=== PATIENT | female | born 1965 | race Two or more races ===

== ENCOUNTER → 2017-10-02 | Outpatient (CLI) | payer OTHER | LOC: CFH 08:19 | PROVIDERS: ATTEND Obstetrics & Gynecology | DX: Z12.31 Encounter for screening mammogram for malignant neoplasm of breast (principal) | CPT/HCPCS: 77067 ==

== ENCOUNTER → 2018-03-19 | Outpatient (CLI) | payer OTHER | END | disposition home or self-care (01) | LOC: CFH 11:23 | PROVIDERS: ATTEND Family Medicine | DX: M51.37 Other intervertebral disc degeneration, lumbosacral region (principal) | CPT/HCPCS: 72110 ==

== ENCOUNTER 2019-09-15 13:42 | Emergency (ER) | payer BC ==
[~2019-09-15] VITALS: Ht 160 cm; Wt 58.3 kg
[2019-09-15] MEDS ORDERED: DIAZEPAM 5 MG/ML, 2ML ONE (14:54)
[2019-09-15] MEDS ORDERED: MORPHINE SULFATE 4 MG/ML, 1ML ONE (14:55)
[2019-09-15] MEDS ORDERED: SODIUM CHLORIDE FLUSH 10ML SYR IVF ONE (15:00)
[2019-09-15] MEDS ORDERED: DIAZEPAM 5 MG/ML, 2ML IVPush ONE (15:00)
[2019-09-15] MEDS ORDERED: MORPHINE SULFATE 4 MG/ML, 1ML IVPush PRN (15:00)
[2019-09-15 15:05] LABS: ALANINE AMINOTRANSFERASE 29 U/L (12-78); ALBUMIN 4.1 g/dL (3.4-5.0); ANION GAP 6 mmol/L (5-15); BASOPHILS # (AUTO) 0.01 x10^3/uL (0-0.1); BASOPHILS % (AUTO) 0 % (0-1); CALCIUM 9.4 mg/dL (8.5-10.1); CHLORIDE 109 mmol/L (98-107); CREATININE 0.56 mg/dL (0.55-1.02); EOSINOPHILS # (AUTO) 0.06 x10^3/uL (0-0.4); EOSINOPHILS % (AUTO) 1 % (1-7); LYMPHOCYTES % (AUTO) 17 % (22-44); MD NO; MEAN CORPUSCULAR HGB CONC 33.6 g/dL (32.4-35.8); MEAN CORPUSCULAR VOLUME 92.3 fL (80-100); MEAN PLATELET VOLUME 9.1 fL (7.4-10.4); MONOCYTES # (AUTO) 0.48 x10^3/uL (0.2-0.8); MONOCYTES % (AUTO) 8 % (2-9); NEUTROPHILS # (AUTO) 4.71 x10^3/uL (1.8-6.8); NEUTROPHILS % (AUTO) 74 % (42-75); PLATELET COUNT 260 x10^3/uL (130-400); RED CELL DISTRIBUTION WIDTH 12.8 % (9.6-15.2)
[2019-09-15 15:07] LABS: ALKALINE PHOSPHATASE 94 U/L (45-117); BILIRUBIN,TOTAL 0.4 mg/dL (0.2-1.0); TOTAL PROTEIN 7.4 g/dL (6.4-8.2)
[2019-09-15] MEDS ORDERED: OMNIPAQUE 350 MG/ML, 100ML BOTTLE ONE (15:45)
[2019-09-15 16:29] VITALS: BP 106/64
== END 2019-09-15 16:53 | disposition home or self-care (01) ==
LOC: ED 14:30
DX: K59.00 Constipation, unspecified (principal); R10.32 Left lower quadrant pain; M62.838 Other muscle spasm; M54.9 Dorsalgia, unspecified
CPT/HCPCS: 36415; 74177; 80053; 85025; 96374; 96375; 99285; J2270; J3360; Q9967

== ENCOUNTER 2021-02-03 17:38 | Inpatient (IN) | payer BC ==
[~2021-02-03] VITALS: Ht 160 cm; Wt 60.5 kg
--- NOTE | 2021-02-03 17:58 | NUR ---
PT TO ROOM FROM TRIAGE, CHANGED INTO GOWN, ALL MONITORS IN PLACE. PT C/O CP STARTING AT 1700. SUBSTERNAL THAT RADIATES TO L-ARM. PT STATES SHE FEELS N/V WITH SOB. AXOX4, AT BS. CALL LIGHT WITHIN REACH
--- NOTE | 2021-02-03 18:06 | NUR ---
ERP AT BS
[2021-02-03] MEDS ORDERED: ONDANSETRON 2MG/ML, 2ML ONE (18:17)
[2021-02-03] MEDS ORDERED: MORPHINE SULFATE 4 MG/ML, 1ML ONE (18:18)
--- NOTE | 2021-02-03 18:19 | NUR ---
XRAY AT BS
--- NOTE | 2021-02-03 18:23 | NUR ---
PT MEDICATED PER EMAR, NADN.
[2021-02-03] MEDS ORDERED: MORPHINE SULFATE 4 MG/ML, 1ML IVPush PRN ×2 (18:30→22:00)
[2021-02-03] MEDS ORDERED: ONDANSETRON 2MG/ML, 2ML IVPush ONE (18:30)
[2021-02-03 18:33] LABS: BASOPHILS % (AUTO) 0 % (0-1); EOSINOPHILS % (AUTO) 1 % (1-7); LYMPHOCYTES % (AUTO) 30 % (22-44); MEAN CORPUSCULAR HEMOGLOBIN 30.2 pg (27.0-34.8); MEAN CORPUSCULAR HGB CONC 33.4 g/dL (32.4-35.8); MEAN PLATELET VOLUME 8.6 fL (7.4-10.4); MONOCYTES % (AUTO) 8 % (2-9); NEUTROPHILS % (AUTO) 60 % (42-75); PLATELET COUNT 244 x10^3/uL (130-400); RED BLOOD COUNT 4.53 x10^6/uL (3.82-5.3); RED CELL DISTRIBUTION WIDTH 12.9 % (9.6-15.2)
[2021-02-03 18:36] LABS: ANION GAP 5 mmol/L (5-15); CALCIUM 8.3 mg/dL (8.5-10.1); CHLORIDE 108 mmol/L (98-107)
[2021-02-03 18:37] LABS: ALANINE AMINOTRANSFERASE 21 U/L (12-78); ALBUMIN 3.6 g/dL (3.4-5.0)
[2021-02-03 18:41] LABS: ALKALINE PHOSPHATASE 96 U/L (45-117); BILIRUBIN,TOTAL 0.3 mg/dL (0.2-1.0); TOTAL PROTEIN 7.3 g/dL (6.4-8.2); TROPONIN I < 0.015 ng/mL (0.000-0.045)
--- NOTE | 2021-02-03 18:50 | NUR ---
REPORT TO HUGO TUBBS
--- NOTE | 2021-02-03 18:51 | NUR ---
Shelbie castano in [facility] - 02/03/21 at 1852 by [email or web address] REPORT FROM JASEN ARIAS
--- NOTE | 2021-02-03 18:53 | NUR ---
REPORT FROM JASEN ARIAS
[2021-02-03 21:34] LABS: TROPONIN I 0.515 ng/mL (0.000-0.045)
[2021-02-03] MEDS ORDERED: ASPIRIN 325 MG TABLET ONE (21:40)
[2021-02-03] MEDS ORDERED: ASPIRIN 325 MG TABLET PO ONE (22:00)
[2021-02-03] MEDS ORDERED: ONDANSETRON 2MG/ML, 2ML IVPush PRN ×2 (22:00→22:30)
--- NOTE | 2021-02-03 22:11 | NUR ---
attempt to call floor [phone]
--- NOTE | 2021-02-03 22:18 | NUR ---
Report to Adia ARIAS
[2021-02-03] MEDS ORDERED: LABETALOL 5MG/ML, 20ML IVPush PRN (22:30)
[2021-02-03] MEDS ORDERED: LORazepam 1MG TABLET PO PRN (22:30)
[2021-02-03] MEDS ORDERED: NITROGLYCERIN 0.4 MG BOTTLE (25 TABS) SL PRN (22:30)
[2021-02-03] MEDS ORDERED: NITROGLYCERIN 0.4 MG/SPRAY SL PRN (22:30)
[2021-02-03] MEDS ORDERED: OXYcodone IR 5MG TABLET PO PRN (22:30)
[2021-02-03] MEDS ORDERED: POLYETHYLENE GLYCOL 17 GM PACKET PO PRN (22:30)
[2021-02-03] MEDS: MELATONIN 5 MG TABLET PO SCH (22:30)
[2021-02-03] MEDS ORDERED: morphine SULFATE 10 MG/ML, 1ML IVPush PRN (22:30)
[2021-02-03 22:37] VITALS: BP 125/77
[2021-02-03] MEDS ORDERED: NAPR-856 PO (22:50)
[2021-02-03] MEDS: FAMOTIDINE 20 MG/2 ML IVPush SCH (23:01)
[2021-02-04] MEDS ORDERED: HEPARIN 5,000 UNITS/ML, 1ML IV ONE (00:30)
[2021-02-04] MEDS ORDERED: HEPARIN 5,000 UNITS/ML, 1ML IV PRN (00:30)
[2021-02-04] MEDS: HEPARIN 25,000 UNITS/250ML PMX 250 ML IV PRN (01:10)
[2021-02-04 01:13] VITALS: BP 107/70
[2021-02-04 04:16] LABS: BASOPHILS % (AUTO) 0 % (0-1); EOSINOPHILS % (AUTO) 1 % (1-7); LYMPHOCYTES % (AUTO) 23 % (22-44); MEAN CORPUSCULAR HEMOGLOBIN 30.8 pg (27.0-34.8); MEAN CORPUSCULAR HGB CONC 33.9 g/dL (32.4-35.8); MEAN PLATELET VOLUME 8.3 fL (7.4-10.4); MONOCYTES % (AUTO) 8 % (2-9); NEUTROPHILS % (AUTO) 68 % (42-75); PLATELET COUNT 235 x10^3/uL (130-400); RED BLOOD COUNT 4.42 x10^6/uL (3.82-5.3); RED CELL DISTRIBUTION WIDTH 12.8 % (9.6-15.2)
[2021-02-04 04:23] LABS: ANION GAP 4 mmol/L (5-15); CALCIUM 8.9 mg/dL (8.5-10.1); CHLORIDE 110 mmol/L (98-107); CREATININE 0.51 mg/dL (0.55-1.02)
[2021-02-04 07:12] VITALS: BP 116/75
[2021-02-04 07:59] LABS: TROPONIN I 0.924 ng/mL (0.000-0.045)
[2021-02-04] MEDS: FAMOTIDINE 20 MG/2 ML IVPush SCH ×2 (09:25→21:15)
[2021-02-04] MEDS: ACETAMINOPHEN 325 MG TABLET PO PRN ×2 (09:33→18:39)
[2021-02-04 13:56] LABS: TROPONIN I 0.534 ng/mL (0.000-0.045)
[2021-02-04 14:33] VITALS: BP 112/70
[2021-02-04] MEDS: SODIUM CHLORIDE 0.9% 1,000 ML IV SCH (15:22)
[2021-02-04 18:38] VITALS: BP 121/77
[2021-02-04] MEDS: CARVEDILOL 3.125 MG TABLET PO SCH (18:39)
[2021-02-04 19:30] VITALS: BP 126/78
[2021-02-04] MEDS: MELATONIN 5 MG TABLET PO SCH (21:00)
[2021-02-04] MEDS ORDERED: ATORVASTATIN 80 MG TABLET PO SCH (21:00)
[2021-02-05] MEDS: SODIUM CHLORIDE 0.9% 1,000 ML IV SCH ×2 (01:36→12:37)
[2021-02-05 01:58] VITALS: BP 119/77
[2021-02-05 03:45] LABS: ANION GAP 5 mmol/L (5-15); CALCIUM 8.3 mg/dL (8.5-10.1); CHLORIDE 113 mmol/L (98-107); CREATININE 0.42 mg/dL (0.55-1.02)
[2021-02-05 05:42] VITALS: BP 122/77
[2021-02-05] MEDS: CARVEDILOL 3.125 MG TABLET PO SCH (05:44)
[2021-02-05] MEDS: ACETAMINOPHEN 325 MG TABLET PO PRN (05:46)
[2021-02-05 08:40] VITALS: BP 116/71
[2021-02-05] MEDS: FAMOTIDINE 20 MG/2 ML IVPush SCH (08:41)
[2021-02-05] MEDS: HEPARIN 25,000 UNITS/250ML PMX 250 ML IV PRN (10:34)
[2021-02-05] MEDS ORDERED: SODIUM CHLORIDE 0.9% 1,000 ML IV SCH ×2 (11:00→13:30)
[2021-02-05] MEDS ORDERED: LIDOCAINE-MPF 1%, 5ML ONE (12:16)
[2021-02-05] MEDS ORDERED: MIDAZOLAM 1 MG/ML, 5ML ONE (12:16)
[2021-02-05] MEDS ORDERED: FENTANYL PF 100 MCG/2ML ONE (12:16)
[2021-02-05] MEDS ORDERED: VERAPAMIL 2.5 MG/ML, 2ML ONE (12:16)
[2021-02-05] MEDS ORDERED: NITROGLYCERIN 5 MG/ML, 10ML ONE (12:35)
[2021-02-05 12:38] VITALS: BP 116/77
[2021-02-05] MEDS ORDERED: ATOR-2 PO (15:54)
[2021-02-05] MEDS ORDERED: ASPI81TA45 PO (15:54)
[2021-02-05] MEDS ORDERED: CARV3.1212 PO (15:54)
[2021-02-05] MEDS ORDERED: ATORVASTATIN 40 MG TABLET PO SCH (21:00)
== END 2021-02-05 17:21 | disposition home or self-care (01) | DRG 281 ==
LOC: ED 18:00 → EDIP 21:49 → 5SO 22:34
PROVIDERS: ADMIT Internal Medicine; ATTEND Family Medicine
PROC: 4A023N7 Measurement of Cardiac Sampling and Pressure, Left Heart, Percutaneous Approach (ICD-10-PCS; principal; 2021-02-05)
PROC: B2151ZZ Fluoroscopy of Left Heart using Low Osmolar Contrast (ICD-10-PCS; 2021-02-05)
PROC: B2111ZZ Fluoroscopy of Multiple Coronary Arteries using Low Osmolar Contrast (ICD-10-PCS; 2021-02-05)
DX: I20.1 Angina pectoris with documented spasm (principal); I21.A1 Myocardial infarction type 2; I50.30 Unspecified diastolic (congestive) heart failure; E11.9 Type 2 diabetes mellitus without complications; I25.9 Chronic ischemic heart disease, unspecified; M19.90 Unspecified osteoarthritis, unspecified site; E78.5 Hyperlipidemia, unspecified; F19.10 Other psychoactive substance abuse, uncomplicated; Z80.3 Family history of malignant neoplasm of breast; Z87.891 Personal history of nicotine dependence
CPT/HCPCS: 36415; 71045; 80048; 80053; 83735; 84443; 84484; 85025; 85520; 93005; 93306; 93356; 93458; 96374; 96375; 99156; 99285; C1769; C1894; G0378; J1644; J2250; J2405; J3010; J2270; J7030; Q9967